=== PATIENT | male | born 2000 | race Caucasian/White ===

== ENCOUNTER 2022-01-24 11:59 | Day surgery (SDC) | payer OTHER ==
[~2022-01-24] VITALS: Ht 175.3 cm; Wt 114.2 kg
[~2022-01-24 11:59] MED LIST: ALBU90OI INH; AMOX500 PO; BENZ100A PO; BP MED; Betamethasone D15 G2 TOP; CITA20 PO; CODACE30 PO; DESV50 PO; ESCI10 PO; FLONASE ALLERG9.9 M2; LAMO25 PO; METPHE20 PO; METPHE20CR; METPRE4DP PO; OMEP20ER PO; RANI150 PO; [UNRECOGNIZED DRUG - REMARK]
[2022-01-24] MEDS ORDERED: PANT20 (12:27)
--- NOTE | 2022-01-24 13:18 | NUR ---
01/24/22 1318 DARIUS DODSON 3 ATTEMPTS AT IV. FIRST ATTEMPT IN R FOREARM BY MA MISSED. SECOND ATTEMPT BY MA IN R AC INFILTRATED. THIRD ATTEMPT BY MA IN R HAND SUCCESSFUL.
== END 2022-01-24 14:04 | disposition home or self-care (01) ==
LOC: ORSCSDS 11:59
PROVIDERS: Student in an Organized Health Care Education/Training Program
PROC: 0DB98ZX Excision of Duodenum, Via Natural or Artificial Opening Endoscopic, Diagnostic (ICD-10-PCS; principal; 2022-01-24 13:15)
PROC: 0DB68ZX Excision of Stomach, Via Natural or Artificial Opening Endoscopic, Diagnostic (ICD-10-PCS; principal; 2022-01-24 13:15)
PROC: 0DB58ZX Excision of Esophagus, Via Natural or Artificial Opening Endoscopic, Diagnostic (ICD-10-PCS; principal; 2022-01-24 13:15)
DX: R10.13 Epigastric pain (principal); R11.0 Nausea; K29.80 Duodenitis without bleeding; K21.9 Gastro-esophageal reflux disease without esophagitis; J45.909 Unspecified asthma, uncomplicated; F31.9 Bipolar disorder, unspecified; F17.210 Nicotine dependence, cigarettes, uncomplicated; E66.9 Obesity, unspecified; Z68.37 Body mass index [BMI] 37.0-37.9, adult; Z79.899 Other long term (current) drug therapy
CPT/HCPCS: 88305; 88342; J2250; J2704; J7120

== ENCOUNTER 2023-02-26 23:10 | Emergency (ER) | payer OTHER ==
[~2023-02-26] VITALS: Ht 175.3 cm; Wt 117.9 kg
[~2023-02-26 23:10] MED LIST changes: +PANT20
[2023-02-26 23:34] VITALS: BP 135/87
[2023-02-27] MEDS ORDERED: PRED20 PO (01:23)
[2023-02-27] MEDS ORDERED: ALBU90OI INH (01:23)
== END 2023-02-27 01:58 | disposition home or self-care (01) ==
LOC: ER 23:10
DX: R07.89 Other chest pain (principal); R06.02 Shortness of breath; F17.290 Nicotine dependence, other tobacco product, uncomplicated
CPT/HCPCS: 71046; 93005; 93010; 99283-25

== ENCOUNTER 2023-08-18 13:07 | Emergency (ER) | payer OTHER ==
[~2023-08-18] VITALS: Ht 175.3 cm; Wt 115.7 kg
[~2023-08-18 13:07] MED LIST changes: +PRED20 PO
[2023-08-18 13:24] VITALS: BP 125/86
== END 2023-08-18 14:33 | disposition home or self-care (01) ==
LOC: ER 13:07
DX: S63.501A Unspecified sprain of right wrist, initial encounter (principal); V18.0XXA Pedal cycle driver injured in noncollision transport accident in nontraffic accident, initial encounter; Y93.55 Activity, bike riding
CPT/HCPCS: 99284

== ENCOUNTER 2024-02-11 11:37 | Emergency (ER) | payer OTHER ==
[~2024-02-11] VITALS: Ht 175.3 cm; Wt 106.6 kg
[2024-02-11 12:45] VITALS: BP 103/64
== END 2024-02-11 13:01 | disposition home or self-care (01) ==
LOC: ER 11:37
DX: R07.89 Other chest pain (principal); F17.200 Nicotine dependence, unspecified, uncomplicated; Z79.899 Other long term (current) drug therapy
CPT/HCPCS: 71046; 93005; 93010; 99283-25